=== PATIENT | male | born 1990 | race Caucasian/White ===

== ENCOUNTER 2016-06-29 21:59 | Emergency (ER) | payer BC ==
[~2016-06-29] VITALS: Ht 170.2 cm; Wt 66.2 kg
[~2016-06-29 21:59] MED LIST: ATARAX,VISTARIL50 MG PO; ZOFRAN ODT4 MG PO
[2016-06-30 00:15] VITALS: BP 106/85
== END 2016-06-30 00:16 | disposition home or self-care (01) ==
LOC: EME 21:59
DX: R05 Cough (principal); R76.11 Nonspecific reaction to tuberculin skin test without active tuberculosis; J98.01 Acute bronchospasm
CPT/HCPCS: 71020; 99281; 99283

== ENCOUNTER 2017-03-07 00:02 | Emergency (ER) | payer BC ==
[~2017-03-07] VITALS: Ht 170.2 cm; Wt 68.8 kg
[2017-03-07] MEDS ORDERED: CLEOCIN300 MG PO (01:31)
[2017-03-07] MEDS ORDERED: MOTRIN600 MG PO (01:31)
[2017-03-07 01:53] VITALS: BP 99/68
== END 2017-03-07 01:53 | disposition home or self-care (01) ==
LOC: EME 00:02 → RME 00:02
DX: K02.9 Dental caries, unspecified (principal); F17.200 Nicotine dependence, unspecified, uncomplicated; Z88.6 Allergy status to analgesic agent; Z88.5 Allergy status to narcotic agent
CPT/HCPCS: 99281; 99283